=== PATIENT | female | born 1970 | race African-American/Black ===

== ENCOUNTER 2022-10-05 05:22 | Emergency (ER) | payer OTHER ==
[~2022-10-05] VITALS: Ht 162.6 cm; Wt 97.5 kg
--- NOTE | 2022-10-05 05:22 | NUR ---
Patient to ER bed 03 to gown for evaluation. Side rails up. Report given to CARRILLO HOUSTON.
--- NOTE | 2022-10-05 05:25 | NUR ---
PT IS HERE BACAUSE SOB. PT IS ALERT AN DORIENTED AND AMBULATORY.
[2022-10-05 05:33] VITALS: BP_SYST 153
--- NOTE | 2022-10-05 05:33 | NUR ---
PT ALSO SAID SOB WITH MOVEMENT, HAD SOME GERD EPISODE. HX OF CHOLESTEROL AND HTN AND HYPERLEPEDIEMIA
[2022-10-05] MEDS ORDERED: NACL 0.9% 1,000 ML IV ONE (06:15)
[2022-10-05 06:42] LABS: BASOPHILS # (AUTO) 0.1 K/uL (0.0-0.2); BASOPHILS % (AUTO) 1.5 % (0.0-2.0); EOSINOPHILS # (AUTO) 0.1 K/uL (0.0-0.4); HEMATOCRIT 41.1 % (36-48); HEMOGLOBIN 13.3 g/dL (12.0-16.0); LYMPHOCYTES # (AUTO) 2.1 K/uL (1.0-5.5); LYMPHOCYTES % (AUTO) 46.8 % (20.5-51.5); MEAN CORPUSCULAR HEMOGLOBIN 30 pg (27-31); MEAN CORPUSCULAR HGB CONC 32 % (32-36); MEAN CORPUSCULAR VOLUME 91 fL (79.0-98.0); MONOCYTES # (AUTO) 0.3 K/uL (0.0-1.0); MONOCYTES % (AUTO) 6.5 % (1.7-9.3); NEUTROPHILS # (AUTO) 1.9 K/uL (1.8-7.7); NEUTROPHILS % (AUTO) 43.2 % (40.0-70.0); PLATELET COUNT (AUTO) 187 K/uL (130-430); RED BLOOD CELL COUNT(AUTO) 4.52 MIL/uL (4.2-6.2); RED CELL DISTRIBUTION WIDTH 15.8 % (9.0-15.0); WHITE BLOOD COUNT (AUTO) 4.5 K/uL (4.8-10.8)
--- NOTE | 2022-10-05 06:54 | NUR ---
BLOOD WORK DONE AND SENT TO PATIENT
[2022-10-05 07:27] LABS: CALCIUM 8.8 mg/dL (8.4-11.0); CREATININE 1.19 mg/dL (0.55-1.30)
--- NOTE | 2022-10-05 07:30 | NUR ---
RECEIVED PT FROM CARRILLO HOUSTON. PT IS AAOX4. RESP E/U. 02 SAT 97% ON R/A. PT HAS C/O SOB DURING ACTIVITY. LUNG SOUNDS CTA. PT DENIES N/V/D/C. SKIN CDI, NO EDEMA, WARM. PERIPHERAL PULSES NORMAL. SIDERAILS UP X2. DENIES PAIN.
[2022-10-05 07:31] LABS: ALBUMIN 3.3 g/dL (3.4-4.8); TOTAL BILIRUBIN 0.4 mg/dL (0.0-1.0)
--- NOTE | 2022-10-05 08:02 | NUR ---
DR. TONG AT BEDSIDE TO ASSESS PT.
[2022-10-05] MEDS ORDERED: LIP20 PO (08:12)
[2022-10-05] MEDS ORDERED: LEVO25TA7 PO (08:12)
[2022-10-05] MEDS ORDERED: ESTR2TAB5 PO (08:12)
[2022-10-05] MEDS ORDERED: LOSA1TAB43 PO (08:12)
--- NOTE | 2022-10-05 09:55 | NUR ---
DR. TONG AT BEDSIDE TO DISCUSS POC.
[2022-10-05 10:26] VITALS: BP_SYST 136
== END 2022-10-05 10:28 | disposition home or self-care (01) ==
LOC: SED 05:22
DX: R06.02 Shortness of breath (principal); M25.512 Pain in left shoulder; E78.5 Hyperlipidemia, unspecified; I10 Essential (primary) hypertension; Z79.899 Other long term (current) drug therapy; Z20.822 Contact with and (suspected) exposure to COVID-19
CPT/HCPCS: 99285; 96360; 71045; 87426; 80053; 83880; 85025; 85379; 87040; 84484; 36415; 93005; 36600; 82803; 83605; 87804 ×2; J7030